=== PATIENT | male | born 1970 | race Two or more races ===

== ENCOUNTER 2019-02-13 06:05 | Day surgery (SDC) | payer OTHER ==
[~2019-02-13 06:05] MED LIST: ASPIRIN81 M1 PO; CARVEDILOL25 MG PO; CLARITIN10 M1 PO; DOXAZOSIN MESYLA1 MG PO; FENOFIBRATE160 MG PO; LIPITOR20 MG PO; LOSARTAN-HCTZ1 EAC1 PO; NORVASC10 MG PO; PRILOSEC OTC20 MG PO; ZANTAC150 M3 PO; ZETIA10 MG PO
[2019-02-13] MEDS ORDERED: SURFAK240 M1 PO (10:45)
[2019-02-13] MEDS ORDERED: POLY119PG PO (10:45)
[2019-02-13] MEDS ORDERED: PERCOCET 5-3251 EACH PO (10:45)
[2019-02-13] MEDS ORDERED: NEURONTIN800 MG PO (10:46)
== END 2019-02-13 14:30 | disposition home or self-care (01) ==
LOC: CIR.AMB 06:05
DX: K42.9 Umbilical hernia without obstruction or gangrene (principal); K43.0 Incisional hernia with obstruction, without gangrene; K43.9 Ventral hernia without obstruction or gangrene; M62.08 Separation of muscle (nontraumatic), other site

== ENCOUNTER 2019-05-15 09:57 | Outpatient (CLI) | payer OTHER ==
[~2019-05-15 09:57] MED LIST changes: +NEURONTIN800 MG PO; +PERCOCET 5-3251 EACH PO; +POLY119PG PO; +SURFAK240 M1 PO
== END 2019-05-15 15:56 | disposition home or self-care (01) ==
LOC: LAB 09:57
DX: E78.2 Mixed hyperlipidemia (principal); I10 Essential (primary) hypertension; D51.3 Other dietary vitamin B12 deficiency anemia; D51.8 Other vitamin B12 deficiency anemias; M54.2 Cervicalgia

== ENCOUNTER 2019-08-07 06:30 | Day surgery (SDC) | payer OTHER ==
[~2019-08-07 06:30] MED LIST changes: +COZAAR100 MG PO; +LIPIT PO; +[UNRECOGNIZED DRUG - OTHER] PO
[2019-08-07] MEDS ORDERED: ULTRACET PO (15:00)
[2019-08-07] MEDS ORDERED: SURFAK240 M1 PO (15:00)
[2019-08-07] MEDS ORDERED: NEURONTIN800 MG PO (15:00)
[2019-08-07] MEDS ORDERED: POLY119PG PO (15:00)
== END 2019-08-07 17:10 | disposition home or self-care (01) ==
LOC: CIR.AMB 06:30
DX: K42.0 Umbilical hernia with obstruction, without gangrene (principal); K43.6 Other and unspecified ventral hernia with obstruction, without gangrene

== ENCOUNTER 2019-10-01 10:45 | Outpatient (CLI) | payer OTHER ==
[~2019-10-01 10:45] MED LIST changes: +ULTRACET PO
== END 2019-10-01 10:50 | disposition home or self-care (01) ==
LOC: LAB 10:45
DX: D50.8 Other iron deficiency anemias (principal); I50.89 Other heart failure; D51.8 Other vitamin B12 deficiency anemias; D51.0 Vitamin B12 deficiency anemia due to intrinsic factor deficiency; E06.3 Autoimmune thyroiditis; C43.59 Malignant melanoma of other part of trunk; D51.3 Other dietary vitamin B12 deficiency anemia; D51.1 Vitamin B12 deficiency anemia due to selective vitamin B12 malabsorption with proteinuria; E78.2 Mixed hyperlipidemia

== ENCOUNTER 2020-01-22 10:57 | Outpatient (CLI) | payer OTHER | END 2020-01-22 15:00 | disposition home or self-care (01) | LOC: LAB 10:57 | PROVIDERS: ATTEND Internal Medicine Hematology & Oncology | DX: D51.3 Other dietary vitamin B12 deficiency anemia (principal); D51.1 Vitamin B12 deficiency anemia due to selective vitamin B12 malabsorption with proteinuria; C43.59 Malignant melanoma of other part of trunk; E55.9 Vitamin D deficiency, unspecified; I50.89 Other heart failure; E78.2 Mixed hyperlipidemia ==

== ENCOUNTER → 2020-01-27 09:23 | Outpatient (CLI) | payer OTHER | END | disposition home or self-care (01) | LOC: LAB 09:23 | PROVIDERS: ATTEND Internal Medicine Hematology & Oncology | DX: D50.8 Other iron deficiency anemias (principal); D51.8 Other vitamin B12 deficiency anemias; C43.59 Malignant melanoma of other part of trunk; D51.3 Other dietary vitamin B12 deficiency anemia; D51.1 Vitamin B12 deficiency anemia due to selective vitamin B12 malabsorption with proteinuria; I50.89 Other heart failure; E78.2 Mixed hyperlipidemia; E55.9 Vitamin D deficiency, unspecified ==

== ENCOUNTER → 2020-03-24 10:19 | Outpatient (CLI) | payer OTHER | END | disposition home or self-care (01) | LOC: CIR.AMB 10:19 → LAB 10:19 | PROVIDERS: ATTEND Internal Medicine Hematology & Oncology | DX: D50.8 Other iron deficiency anemias (principal); C43.59 Malignant melanoma of other part of trunk; D51.3 Other dietary vitamin B12 deficiency anemia; D51.1 Vitamin B12 deficiency anemia due to selective vitamin B12 malabsorption with proteinuria; E55.9 Vitamin D deficiency, unspecified; I50.89 Other heart failure; E78.2 Mixed hyperlipidemia; Z01.812 Encounter for preprocedural laboratory examination ==

== ENCOUNTER 2020-09-22 11:23 | Outpatient (CLI) | payer OTHER | END 2020-09-22 15:00 | disposition home or self-care (01) | LOC: LAB 11:23 | PROVIDERS: ATTEND Internal Medicine Hematology & Oncology | DX: R79.89 Other specified abnormal findings of blood chemistry (principal); I10 Essential (primary) hypertension; R74.02 Elevation of levels of lactic acid dehydrogenase [LDH]; K76.89 Other specified diseases of liver; D68.8 Other specified coagulation defects; D69.1 Qualitative platelet defects; N39.0 Urinary tract infection, site not specified; C43.59 Malignant melanoma of other part of trunk; D51.3 Other dietary vitamin B12 deficiency anemia; D51.1 Vitamin B12 deficiency anemia due to selective vitamin B12 malabsorption with proteinuria; E55.9 Vitamin D deficiency, unspecified; I50.89 Other heart failure; E78.2 Mixed hyperlipidemia; I11.9 Hypertensive heart disease without heart failure; E11.9 Type 2 diabetes mellitus without complications; M54.6 Pain in thoracic spine; M54.2 Cervicalgia ==

== ENCOUNTER 2020-10-06 10:20 | Outpatient (CLI) | payer OTHER | END 2020-10-06 10:24 | disposition home or self-care (01) | LOC: LAB 10:20 | PROVIDERS: ATTEND Internal Medicine Hematology & Oncology | DX: C43.59 Malignant melanoma of other part of trunk (principal); D51.3 Other dietary vitamin B12 deficiency anemia; D51.1 Vitamin B12 deficiency anemia due to selective vitamin B12 malabsorption with proteinuria; E55.9 Vitamin D deficiency, unspecified; I50.9 Heart failure, unspecified; E78.2 Mixed hyperlipidemia; I10 Essential (primary) hypertension; D50.8 Other iron deficiency anemias; N52.8 Other male erectile dysfunction ==

== ENCOUNTER 2021-02-11 12:20 | Outpatient (CLI) | payer OTHER | END 2021-02-11 12:29 | disposition home or self-care (01) | LOC: LAB 12:20 | DX: E29.1 Testicular hypofunction (principal); N00-N99 Diseases of the genitourinary system; R68.82 Decreased libido ==

== ENCOUNTER 2021-09-29 07:45 | Outpatient (CLI) | payer OTHER | END 2021-09-29 07:55 | disposition home or self-care (01) | LOC: SONOGRAMA 07:45 | DX: M25.522 Pain in left elbow (principal); M25.532 Pain in left wrist; M25.531 Pain in right wrist ==

== ENCOUNTER → 2022-05-11 | Outpatient (CLI) | payer OTHER | END | disposition home or self-care (01) | LOC: RAD 14:59 | PROVIDERS: ATTEND Physical Medicine & Rehabilitation | DX: M54.2 Cervicalgia (principal) ==